=== PATIENT | female | born 1985 | race Asian ===

== ENCOUNTER 2018-05-14 17:21 | Inpatient (IN) | payer OTHER ==
[2018-05-14] MEDS: SOD CHLORIDE 0.9% 1,000 ML IV ×2 (18:02→22:21)
[2018-05-14] MEDS: ONDANSETRON 4 MG INJ IV (18:02)
[2018-05-14] MEDS: morphine 4 MG/ML VIAL IV (18:02)
[2018-05-14 18:12] LABS: ADD MAN DIFF? NO
[2018-05-14 18:26] LABS: BASOPHIL # 0.1 10^3/ul (0.0-0.1); BASOPHILS % 0.5 % (0.0-2.0); EOSINOPHILS # 0.2 10^3/ul (0.0-0.5); EOSINOPHILS % 2.4 % (0.0-7.0); HEMOGLOBIN 15.1 g/dl (12.0-16.0); LYMPHOCYTES # 3.6 10^3/ul (0.8-2.9); LYMPHOCYTES % 35.8 % (15.0-51.0); MEAN CORPUSCULAR HEMOGLOBIN 28.8 pg (29.0-33.0); MEAN CORPUSCULAR HGB CONC 33.6 g/dl (32.0-37.0); MEAN CORPUSCULAR VOLUME 85.9 fl (82.0-101.0); MEAN PLATELET VOLUME 10.9 fl (7.4-10.4); MONOCYTE # 0.7 10^3/ul (0.3-0.9); NEUTROPHIL # 5.3 10^3/ul (1.6-7.5); NEUTROPHILS % 53.7 % (39.0-77.0); PLATELET COUNT 251 10^3/UL (140-415); RED BLOOD COUNT 5.24 10^6/ul (4.20-5.40); RED CELL DISTRIBUTION WIDTH 12.3 % (11.5-14.5)
[2018-05-14 18:48] LABS: INR 0.87; PROTIME 11.9 Sec (11.9-14.9); PT RATIO 0.9
[2018-05-14 18:49] LABS: PARTIAL THROMBOPLASTIN TIME 30.9 Sec (25.0-35.0)
[2018-05-14 19:52] LABS: UR BACTERIA FEW /HPF (NONE SEEN); UR MUCUS MODERATE /HPF (NONE SEEN); UR RBC 101 /HPF (0-5); UR SQUAMOUS EPITHELIAL CELL FEW /HPF (FEW); UR WBC 22 /HPF (0-5)
[2018-05-14 21:02] LABS: ADD UMIC YES; UR ASCORBIC ACID NEGATIVE (NEGATIVE); UR BILIRUBIN (Dip) NEGATIVE (NEGATIVE); UR BLOOD (Dip) 3+ mg/dL (NEGATIVE); UR CLARITY SLIGHTLY CLOUDY (CLEAR); UR COLOR YELLOW (YELLOW); UR GLUCOSE (Dip) NEGATIVE (NEGATIVE); UR KETONES (Dip) NEGATIVE (NEGATIVE); UR LEUKOCYTE ESTERASE (Dip) NEGATIVE Leu/ul (NEGATIVE); UR NITRITE (Dip) NEGATIVE (NEGATIVE); UR SPECIFIC GRAVITY (Dip) 1.024 (1.003-1.030); UR TOTAL PROTEIN (Dip) NEGATIVE (NEGATIVE); UR UROBILINOGEN (Dip) NEGATIVE (NEGATIVE)
[2018-05-14] MEDS: CEFTRIAXONE 1 GM/50 ML (PMX) 50 ML IVPB (22:21)
[2018-05-14] MEDS: morphine 10 MG INJ IV (23:17)
[2018-05-15] MEDS: ONDANSETRON 4 MG INJ IV ×2 (00:01→03:56)
[2018-05-15] MEDS ORDERED: METOCLOPRAMIDE 10 MG INJ (00:09)
[2018-05-15] MEDS ORDERED: MIDAZOLAM 1 MG/ML 2 ML INJ (00:15)
[2018-05-15] MEDS ORDERED: ROCURONIUM 50 MG INJ (00:15)
[2018-05-15] MEDS ORDERED: LIDOCAINE 1% (MDV) 20 ML INJ (00:15)
[2018-05-15] MEDS ORDERED: PROPOFOL 20 ML (00:15)
[2018-05-15] MEDS ORDERED: BUPIVACAINE 0.75%/DEXT (SPINAL) 2 ML INJ (00:18)
[2018-05-15] MEDS: METOCLOPRAMIDE 10 MG INJ IV (00:21)
[2018-05-15] MEDS ORDERED: ONDANSETRON 4 MG INJ (01:30)
[2018-05-15] MEDS ORDERED: CEFAZOLIN 1 GM INJ (01:30)
[2018-05-15] MEDS ORDERED: DEXAMETHASONE 4 MG/ML 1 ML INJ (01:30)
[2018-05-15] MEDS: TRIAMCINOLONE ACET 40 MG/ML INJ (01:44)
[2018-05-15] MEDS ORDERED: ROPIVACAINE 0.2% 20 ML VIAL (02:42)
[2018-05-15] MEDS ORDERED: SUGAMMADEX SODIUM 200 MG/2 ML VIAL IV (03:21)
[2018-05-15] MEDS ORDERED: HYDROmorphONE 1 MG/5 ML IV SYRINGE IV ×2 (04:00)
[2018-05-15] MEDS: FAMOTIDINE 20 MG INJ IV (04:09)
[2018-05-15] MEDS: PROCHLORPERAZINE 10 MG INJ IV (04:28)
[2018-05-15] MEDS: MULTIVITAMINS 10 ML, THIAMINE 100 MG, FOLIC ACID 1 MG in SOD CHLORIDE 0.9% 1,000 ML IVPB (05:05)
[2018-05-15] MEDS ORDERED: ETOMIDATE 20 MG INJ (07:00)
[2018-05-15] MEDS: D5W-0.45 NACL + KCL 20 MEQ 1,000 ML IV ×3 (07:20→23:16)
[2018-05-15] MEDS: ACETAMINOPHEN 325 MG TAB PO ×2 (08:55→18:46)
[2018-05-15] MEDS: CEFAZOLIN 2 GM/50 ML (PMX) 50 ML IVPB ×3 (08:55→14:42)
[2018-05-15] MEDS: HYDROCODONE/APAP (5/325) TAB PO (13:26)
[2018-05-15 15:38] LABS: ALANINE AMINOTRANSFERASE 22 IU/L (13-69); ALBUMIN/GLOBULIN RATIO 1.29; ALKALINE PHOSPHATASE 39 IU/L (42-121); ANION GAP 14 (8-16); ASPARTATE AMINO TRANSFERASE 29 IU/L (15-46); BILIRUBIN,INDIRECT 0.2 mg/dl (0-1.1); BILIRUBIN,TOTAL 0.2 mg/dl (0.2-1.3); BLOOD UREA NITROGEN 4 mg/dl (7-20); CALCIUM 8.3 mg/dl (8.4-10.2); CARBON DIOXIDE 21 mmol/L (21-31); CHLORIDE 111 mmol/L (97-110); CREATININE 0.44 mg/dl (0.44-1.00); GLUCOSE 154 mg/dl (70-220); POTASSIUM 3.7 mmol/L (3.5-5.1); SODIUM 142 mmol/L (135-144); TOTAL PROTEIN 7.1 g/dl (6.1-8.1)
[2018-05-16] MEDS: ACETAMINOPHEN 325 MG TAB PO ×3 (02:18→20:05)
[2018-05-16 05:11] LABS: ADD MAN DIFF? NO
[2018-05-16 05:16] LABS: WHITE BLOOD COUNT 13.5 10^3/ul (4.8-10.8)
[2018-05-16 05:16] LABS: BASOPHILS % 0.1 % (0.0-2.0); HEMATOCRIT 34.7 % (37.0-47.0); HEMOGLOBIN 11.5 g/dl (12.0-16.0); LYMPHOCYTES # 1.3 10^3/ul (0.8-2.9); LYMPHOCYTES % 9.3 % (15.0-51.0); MEAN CORPUSCULAR HEMOGLOBIN 28.6 pg (29.0-33.0); MEAN CORPUSCULAR HGB CONC 33.1 g/dl (32.0-37.0); MEAN CORPUSCULAR VOLUME 86.3 fl (82.0-101.0); MEAN PLATELET VOLUME 11.2 fl (7.4-10.4); MONOCYTE # 0.8 10^3/ul (0.3-0.9); MONOCYTES % 5.9 % (0.0-11.0); NEUTROPHIL # 11.3 10^3/ul (1.6-7.5); NEUTROPHILS % 84.3 % (39.0-77.0); PLATELET COUNT 212 10^3/UL (140-415); RED BLOOD COUNT 4.02 10^6/ul (4.20-5.40); RED CELL DISTRIBUTION WIDTH 12.5 % (11.5-14.5)
[2018-05-16] MEDS: ONDANSETRON 4 MG INJ IV ×3 (09:09→21:21)
[2018-05-16 12:03] LABS: ADD MAN DIFF? NO
[2018-05-16 12:07] LABS: WHITE BLOOD COUNT 13.2 10^3/ul (4.8-10.8)
[2018-05-16 12:07] LABS: BASOPHILS % 0.2 % (0.0-2.0); HEMATOCRIT 33.8 % (37.0-47.0); HEMOGLOBIN 11.4 g/dl (12.0-16.0); LYMPHOCYTES # 1.8 10^3/ul (0.8-2.9); LYMPHOCYTES % 13.4 % (15.0-51.0); MEAN CORPUSCULAR HEMOGLOBIN 28.9 pg (29.0-33.0); MEAN CORPUSCULAR HGB CONC 33.7 g/dl (32.0-37.0); MEAN CORPUSCULAR VOLUME 85.6 fl (82.0-101.0); MEAN PLATELET VOLUME 10.8 fl (7.4-10.4); MONOCYTE # 0.7 10^3/ul (0.3-0.9); MONOCYTES % 5.6 % (0.0-11.0); NEUTROPHIL # 10.6 10^3/ul (1.6-7.5); NEUTROPHILS % 80.3 % (39.0-77.0); PLATELET COUNT 203 10^3/UL (140-415); RED BLOOD COUNT 3.95 10^6/ul (4.20-5.40); RED CELL DISTRIBUTION WIDTH 12.5 % (11.5-14.5)
[2018-05-16] MEDS: MAGNESIUM HYDROXIDE 30ML CUP PO (13:31)
[2018-05-16] MEDS: HYDROCODONE/APAP (5/325) TAB PO (13:33)
[2018-05-16] MEDS: KETOROLAC 15 MG INJ IV (18:15)
[2018-05-16] MEDS: PROMETHAZINE 25 MG TAB PO (19:05)
[2018-05-16] MEDS: [UNRECOGNIZED DRUG - OTHER] IV (21:26)
[2018-05-16] MEDS: DEXTROSE 5% IV (21:26)
[2018-05-16] MEDS: MULTIVITAMINS 10 ML, THIAMINE 100 MG, FOLIC ACID 1 MG in SOD CHLORIDE 0.9% 1,000 ML IVPB (23:23)
[2018-05-17] MEDS: ACETAMINOPHEN 325 MG TAB PO (03:36)
[2018-05-17] MEDS: KETOROLAC 15 MG INJ IV (07:14)
[2018-05-17] MEDS: METOCLOPRAMIDE 10 MG INJ IV (08:15)
[2018-05-17] MEDS: DEXTROSE 5%-LR 1,000 ML IV ×3 (08:20→23:33)
[2018-05-17] MEDS: IBUPROFEN 800 MG TAB PO (15:12)
[2018-05-17] MEDS: FAMOTIDINE 20 MG TAB PO ×2 (15:52→23:33)
[2018-05-17] MEDS: LACTATED RINGER'S 1,000 ML IV (18:55)
[2018-05-17] MEDS ORDERED: FAMOTIDINE 20 MG TAB PO (21:00)
[2018-05-18] MEDS: IBUPROFEN 800 MG TAB PO ×2 (06:33→14:47)
[2018-05-18] MEDS: FAMOTIDINE 20 MG TAB PO ×2 (09:19→21:13)
[2018-05-18] MEDS: ONDANSETRON 4 MG INJ IV ×3 (09:21→17:28)
[2018-05-18] MEDS: KETOROLAC 15 MG INJ IV (11:58)
[2018-05-18] MEDS: DEXTROSE 5%-LR 1,000 ML IV (12:00)
[2018-05-18 12:35] LABS: ADD MAN DIFF? NO
[2018-05-18 12:41] LABS: BASOPHIL # 0.1 10^3/ul (0.0-0.1); BASOPHILS % 0.5 % (0.0-2.0); EOSINOPHILS # 0.1 10^3/ul (0.0-0.5); EOSINOPHILS % 0.7 % (0.0-7.0); HEMATOCRIT 35.7 % (37.0-47.0); HEMOGLOBIN 12.2 g/dl (12.0-16.0); LYMPHOCYTES # 2.5 10^3/ul (0.8-2.9); MEAN CORPUSCULAR HEMOGLOBIN 29.1 pg (29.0-33.0); MEAN CORPUSCULAR HGB CONC 34.2 g/dl (32.0-37.0); MEAN CORPUSCULAR VOLUME 85.2 fl (82.0-101.0); MEAN PLATELET VOLUME 10.8 fl (7.4-10.4); MONOCYTE # 0.6 10^3/ul (0.3-0.9); MONOCYTES % 6.5 % (0.0-11.0); NEUTROPHIL # 6.3 10^3/ul (1.6-7.5); PLATELET COUNT 216 10^3/UL (140-415); RED BLOOD COUNT 4.19 10^6/ul (4.20-5.40); RED CELL DISTRIBUTION WIDTH 12.2 % (11.5-14.5)
[2018-05-18 12:41] LABS: WHITE BLOOD COUNT 9.6 10^3/ul (4.8-10.8)
[2018-05-18 13:03] LABS: ANION GAP 15 (8-16); BLOOD UREA NITROGEN 6 mg/dl (7-20); CALCIUM 8.8 mg/dl (8.4-10.2); CARBON DIOXIDE 24 mmol/L (21-31); CHLORIDE 106 mmol/L (97-110); CREATININE 0.46 mg/dl (0.44-1.00); GLUCOSE 106 mg/dl (70-220); POTASSIUM 3.6 mmol/L (3.5-5.1); SODIUM 141 mmol/L (135-144)
[2018-05-18] MEDS: ACETAMINOPHEN 325 MG TAB PO (17:27)
[2018-05-18] MEDS ORDERED: ONDANSETRON 4 MG INJ IV (22:30)
[2018-05-19] MEDS: DEXTROSE 5%-LR 1,000 ML IV (00:10)
[2018-05-19] MEDS: ACETAMINOPHEN 325 MG TAB PO (08:27)
[2018-05-19] MEDS: FAMOTIDINE 20 MG TAB PO (08:27)
[2018-05-19] MEDS: IBUPROFEN 800 MG TAB PO (11:54)
== END 2018-05-19 13:20 | disposition home or self-care (01) | DRG 777 ==
LOC: MS1 23:25 → FTE 17:21 → REC 21:55
PROVIDERS: Obstetrics & Gynecology
PROC: 10D27ZZ Extraction of Products of Conception, Ectopic, Via Natural or Artificial Opening (ICD-10-PCS; principal; 2018-05-15 00:23)
PROC: 0U7 Female Reproductive System, Dilation (ICD-10-PCS; 2018-05-15 00:23)
PROC: 0HB7XZZ Excision of Abdomen Skin, External Approach (ICD-10-PCS; 2018-05-15 00:23)
PROC: 3E0R3GC Introduction of Other Therapeutic Substance into Spinal Canal, Percutaneous Approach (ICD-10-PCS; 2018-05-15 00:48)
DX: O00.101 Right tubal pregnancy without intrauterine pregnancy (principal); K66.1 Hemoperitoneum; L90.5 Scar conditions and fibrosis of skin; Z90.79 Acquired absence of other genital organ(s); G97.1 Other reaction to spinal and lumbar puncture
CPT/HCPCS: 76801; 76817; 80048; 80053; 81001; 81025; 84702; 85025; 85610; 85730; 86850; 86900; 86901; 87086; 88305; 96361; 96374; 96375; 99285-25

== ENCOUNTER 2018-11-11 12:51 | Emergency (ER) | payer OTHER ==
[2018-11-11] MEDS ORDERED: predniSONE 20 MG TAB (16:53)
[2018-11-11] MEDS: DIPHENHYDRAMINE 25 MG CAP PO (16:54)
[2018-11-11] MEDS: FAMOTIDINE 20 MG TAB PO (16:55)
[2018-11-11] MEDS: predniSONE 50 MG TAB PO (16:55)
== END 2018-11-11 17:12 | disposition home or self-care (01) ==
LOC: FTE 12:51
DX: R21 Rash and other nonspecific skin eruption (principal)
CPT/HCPCS: 81025; 99283